=== PATIENT | male | born 1980 | race African-American/Black ===

== ENCOUNTER 2017-01-01 19:56 | Emergency (ER) | payer OTHER ==
--- NOTE | ~2017-01-01 | CR72 ---
[facility] A Service of [facility] & [facility] RADIOLOGY TEXT RESULTS PATIENT: KWAME WOOD LOCATION: [facility] : 80 UNIT #: [id number] AGE: [address]: Andrea Ceballos MD SEX: M ORDER DR: [id number] [facility] [address] [place], [place] [address] [id number] E MR#: [id number] Acc #: [id number] NAME: KWAME WOOD : 1980 SEX: M STUDY DATE/TIME: 01/01/2017 20:41 UNIT: [facility] ROOM: STUDY DESCRIPTION: CR Chest Single View Portable Attending Physician: Segundo Ceballos M.D. Ordering Physician: Ed Doc Zaynab Moreno Primary Care Physician: Primary Care Physician No MEDICAL IMAGING REPORT This report is preliminary unless electronic signature is present EXAM Portable chest x-ray, 01/01/2017 HISTORY Chest pain. Short of air, chest pain left side, began today. FINDINGS AP radiograph of the chest is presented. No prior studies for comparison. No acute bony abnormality. The heart is normal to upper limits of normal in size. The lungs are moderately well inflated. Right lung is clear. There is some patchy and linear densities in the left lower lung zone, probably atelectatic in nature. Minimal pneumonitis could be considered. There is no dense airspace disease, pleural effusion or pneumothorax, and there is no suspicious nodule. Visualized upper abdomen unremarkable. Dictated by... Talat Rodriguez M.D. THIS IS AN ELECTRONICALLY VERIFIED REPORT Talat Rodriguez M.D. at 01/02/2017 5:58 PM [email or web address] TD: 01/01/2017 22:34 JOB #: [id number] MEDICAL IMAGING REPORT Page 1 of 1 COPY
--- NOTE | ~2017-01-01 | EKG ---
PATIENT: KWAME WOOD UNIT #: [id number] Ventricular Rate: 72 BPM Atrial Rate: 72 BPM P-R Interval: 174 ms QRS Duration: 82 ms Q-T Interval: 390 ms QTC Calculation(Bezet): 427 ms P [place]: 53 degrees Calculated R [place]: 20 degrees Calculated T [place]: 17 degrees Diagnosis Line: Sinus rhythm with Premature atrial complexes with Diagnosis Line: Aberrant conduction Diagnosis Line: Otherwise normal ECG Diagnosis Line: No previous ECGs available Diagnosis Line: Confirmed by BELTRAN AQUINO MD ([id number]) on 01/02/2017 Diagnosis Line: 6:04:29 PM INTERPRETING MD: MILES CARRASCO
[~2017-01-01 19:56] MED LIST: AUGMENTIN PO; DOXYCYCLINE150 MG PO; FLAGYL250 M1 PO; FLEXERIL PO; FLEXERIL10 MG PO; KETOPROFEN PO; PERCOCET5/325 PO; TYLOX 5/500 CAP1 CAP PO; ULTRAM PO; VICODIN 5/500 T1 TAB PO
[2017-01-01 20:41] LABS: POC - CKMB <1.0 ng/mL (0.0-7.9); POC - TROPONIN <0.05 ng/mL (<=0.05)
[2017-01-01 21:26] LABS: PARTIAL THROMBOPLASTIN TIME 26.1 SECONDS (23.5-31.3)
[2017-01-01 21:34] LABS: BASOPHIL# 0.1 X10e3 (0-0.3); BASOPHIL% 1.2 % (0-2.5); EOSINOPHIL# 0.3 X10e3 (0-0.7); EOSINOPHIL% 3.4 % (0.0-7.0); HEMATOCRIT 45.5 % (38.0-50.0); HEMOGLOBIN 14.7 gm/dL (13.0-16.0); LYMPHOCYTE# 2.5 X10e3 (1.0-3.5); LYMPHOCYTE% 31.3 % (17.0-45.0); MEAN CELL VOLUME 90.4 FL (83-96); MEAN CORPUSCULAR HEMOGLOBIN 29.2 PG (28-34); MEAN CORPUSCULAR HGB CONC 32.3 g/dL (30-36); MEAN PLATELET VOLUME 10.9 FL (6.5-11.5); MONOCYTE# 0.7 X10e3 (0-1.0); MONOCYTE% 8.7 % (3.0-12.0); NEUTROPHIL# 4.5 X10e3 (1.5-7.1); NEUTROPHIL% 55.4 % (40-75); RED BLOOD COUNT 5.04 X10e (3.90-5.60); RED CELL DISTRIBUTION WIDTH 14.5 % (11.0-15.5); WHITE BLOOD COUNT 8.1 X10e3 (4.0-10.5)
[2017-01-01 21:35] LABS: ALBUMIN SERUM 4.5 g/dL (3.5-5.0); BILIRUBIN, DIRECT 0.1 mg/dL (0.0-0.2); BILIRUBIN,INDIRECT 0.6 mg/dL (0.0-0.9); BILIRUBIN,TOTAL 0.7 mg/dL (0.2-2.0); BUN/CREATININE RATIO 14.61; CREATININE SERUM 1.3 mg/dL (0.6-1.4); DIFF IND NO; GLOM FILT RATE Estimated 81.4 mL/min (>60); PLATELET COUNT 174 X10e3 (140-420); PROTEIN TOTAL SERUM 7.5 g/dL (6.0-8.3)
[2017-01-01 22:49] LABS: POC - CKMB <1.0 ng/mL (0.0-7.9); POC - TROPONIN <0.05 ng/mL (<=0.05)
== END 2017-01-01 23:50 | disposition home or self-care (01) ==
LOC: CED 19:56
PROVIDERS: Emergency Medicine
DX: I49.1 Atrial premature depolarization (principal); F17.210 Nicotine dependence, cigarettes, uncomplicated
CPT/HCPCS: 36415; 71010; 80048; 80076; 82553; 84484; 85025; 85610; 85730; 93005; 99284